=== PATIENT | male | born 1960 | race Caucasian/White ===

== ENCOUNTER 2024-12-23 08:00 | Outpatient (CLI) | payer OTHER | END 2024-12-23 12:37 | disposition home or self-care (01) | LOC: LABBT 08:00 | PROVIDERS: ATTEND Student in an Organized Health Care Education/Training Program | DX: Z01.818 Encounter for other preprocedural examination (principal); M16.12 Unilateral primary osteoarthritis, left hip | CPT/HCPCS: 71046; 93005; 93010 ==

== ENCOUNTER 2024-12-26 10:45 | Inpatient (IN) | payer OTHER ==
[2024-12-23 14:24] LABS: #Basophils 0.07 10x3/uL (0.0-0.2); #Eosinophils 0.52 10x3/uL (0.0-0.7); #Monocytes 1.07 10x3/uL (0.11-0.59); #Neutrophils 9.55 10x3/uL (1.40-6.50); %Basophils 0.5 % (0.0-1.0); %Eosinophils 3.9 % (0.0-10.0); %Lymphocytes 16.4 % (21.0-51.0); %Monocytes 7.9 % (0.0-10.0); %Neutrophils 70.8 % (42.0-75.0); Hematocrit 45.2 % (42.0-52.0); Hemoglobin 14.2 g/dL (14.0-18.0); Mean Corpuscular Hemoglobin 29.5 pg (27.0-31.0); Mean Corpuscular Volume 94.0 fL (78.0-98.0); Platelet Count 396 10x3/uL (130-400); Red Blood Cell (RBC) Count 4.81 mill/uL (4.70-6.10); White Blood Cell (WBC) Count 13.49 10x3/uL (4.8-10.8)
[2024-12-23 14:36] LABS: INR-International Normal Ratio 1.1; Prothrombin Time 14.0 sec (12.0-14.7)
[2024-12-23 14:55] LABS: ALT (SGPT) 30 U/L (Less than 45); AST (SGOT) 27 U/L (11-34); Albumin 3.7 g/dL (3.1-4.5); Alkaline Phosphatase 69 U/L (40-110); Anion Gap 13 mmol/L (10-20); BUN (Urea Nitrogen) 31 mg/dL (8.4-25.7); Bilirubin, Total 0.5 mg/dL (0.3-1.2); Calc. Creatinine Clearance 0 mL/min (70-130); Calcium 9.6 mg/dL (7.8-10.44); Carbon Dioxide 26 mmol/L (23-31); Chloride 105 mmol/L (98-107); Globulin 4.0 g/dL (2.4-3.5); Glucose 94 mg/dL (80-115); Potassium 4.4 mmol/L (3.5-5.1); Sodium 140 mmol/L (136-145)
[2024-12-26] MEDS ORDERED: Acetaminophen 500 MG TAB ONE (11:29)
[2024-12-26] MEDS ORDERED: Tranexamic Acid 1,000 MG/10 ML VIAL ONE ×2 (11:30→17:29)
[2024-12-26] MEDS ORDERED: VANCOMYCIN 2 GRAM/400 ML BAG ONE (11:44)
[2024-12-26] MEDS ORDERED: Ketamine In 0.9 % NaCl 50 MG/5 ML SYRINGE ONE (13:32)
[2024-12-26] MEDS ORDERED: PROPOFOL 20 ML ONE (13:35)
[2024-12-26] MEDS ORDERED: CEFAZOLIN 2 GM VIAL ONE (13:35)
[2024-12-26] MEDS ORDERED: Rocuronium Bromide 10 MG/ML (10ML VIAL) ONE (13:35)
[2024-12-26] MEDS ORDERED: fentaNYL PF 100 MCG/2 ML SYRINGE ONE (13:35)
[2024-12-26] MEDS ORDERED: Lidocaine 1% PF 5 ML VIAL ONE (13:35)
[2024-12-26] MEDS ORDERED: Ondansetron PF 4 MG/2 ML Vial ONE (13:41)
[2024-12-26] MEDS ORDERED: PHENYLEPHRINE-NS 100 MCG/ML 10 ML SYRINGE ONE (14:08)
[2024-12-26] MEDS ORDERED: HYDROmorphone 2 MG/ML VIAL ONE (14:30)
[2024-12-26] MEDS ORDERED: NEOSTIGMINE 3 MG/3 ML SYRINGE ONE (16:31)
[2024-12-26] MEDS ORDERED: Glycopyrrolate 0.2 MG/ML 5 ML SYRINGE ONE (16:31)
[2024-12-26] MEDS ORDERED: Ondansetron PF 4 MG/2 ML Vial IVP PRN (18:47)
[2024-12-26] MEDS ORDERED: oxyCODONE 5 MG TAB PO PRN (18:47)
[2024-12-26] MEDS ORDERED: diphenhydrAMINE 25 MG CAP PO PRN (18:47)
[2024-12-26 19:17] VITALS: BMI 34.7
[2024-12-26] MEDS: Acetaminophen 500 MG TAB PO SCH (20:16)
[2024-12-26] MEDS: Gabapentin 300 MG CAP PO SCH (20:17)
[2024-12-26] MEDS: Ferrous Gluconate 324 MG TAB PO SCH (20:17)
[2024-12-26] MEDS: oxyCODONE 5 MG TAB PO PRN (20:18)
[2024-12-26] MEDS: Senokot S 8.6-50 MG TAB PO SCH (20:18)
[2024-12-27] MEDS: FLU (Fluarix Triv) 25-26 (6MOS UP)/PF 45 MCG/0.5 ML Syringe IM ONE (02:11)
[2024-12-27 05:49] LABS: Hematocrit 40.4 % (42.0-52.0); Hemoglobin 13.1 g/dL (14.0-18.0); Mean Corpuscular Hemoglobin 30.3 pg (27.0-31.0); Mean Corpuscular Volume 93.3 fL (78.0-98.0); Platelet Count 289 10x3/uL (130-400); Red Blood Cell (RBC) Count 4.33 mill/uL (4.70-6.10); White Blood Cell (WBC) Count 16.49 10x3/uL (4.8-10.8)
[2024-12-27 06:15] LABS: Anion Gap 13 mmol/L (10-20); BUN (Urea Nitrogen) 28 mg/dL (8.4-25.7); Calc. Creatinine Clearance 111 mL/min (70-130); Calcium 8.7 mg/dL (7.8-10.44); Carbon Dioxide 21 mmol/L (23-31); Chloride 106 mmol/L (98-107); Glucose 166 mg/dL (80-115); Potassium 4.9 mmol/L (3.5-5.1); Sodium 135 mmol/L (136-145)
[2024-12-27] MEDS: Multivitamin W/ Minerals 1 TAB PO SCH (09:18)
[2024-12-27] MEDS: Aspirin 81 mg Enteric Coated Tablet PO SCH (09:18)
[2024-12-27] MEDS: Carvedilol 25 MG TAB PO SCH (21:59)
[2024-12-28 06:18] LABS: Hematocrit 37.3 % (42.0-52.0); Hemoglobin 12.0 g/dL (14.0-18.0); Mean Corpuscular Hemoglobin 30.2 pg (27.0-31.0); Mean Corpuscular Volume 93.7 fL (78.0-98.0); Platelet Count 329 10x3/uL (130-400); Red Blood Cell (RBC) Count 3.98 mill/uL (4.70-6.10); White Blood Cell (WBC) Count 13.76 10x3/uL (4.8-10.8)
[2024-12-28 08:01] VITALS: BP 125/82; TEMP 97.9
[2024-12-28] MEDS ORDERED: Non-Formulary Item 1 EACH (Spironolactone [Spironolactone] 50 MG Tablet) PO SCH (09:00)
[2024-12-28] MEDS ORDERED: Non-Formulary Item 1 EACH (Lisinopril [Lisinopril] 40 MG Tablet) PO SCH (09:00)
[2024-12-28] MEDS ORDERED: NEBIVOLOL HCL 20 MG PO SCH (09:00)
[2024-12-28] MEDS: Spironolactone 25 MG TAB PO SCH (11:36)
[2024-12-28] MEDS: Lisinopril 20 MG TAB PO SCH (11:38)
[2024-12-28] MEDS: Ezetimibe 10 MG TAB PO SCH (11:38)
== END 2024-12-28 11:43 | disposition home or self-care (01) | DRG 470 ==
LOC: SDC 10:45 → SURG A 17:39 → OBSVTOIN 17:39
PROVIDERS: ADMIT Student in an Organized Health Care Education/Training Program; ATTEND Orthopaedic Surgery
PROC: 0SRB03Z Replacement of Left Hip Joint with Ceramic Synthetic Substitute, Open Approach (ICD-10-PCS; principal; 2024-12-26)
PROC: 3E0234Z Introduction of Serum, Toxoid and Vaccine into Muscle, Percutaneous Approach (ICD-10-PCS; 2024-12-26)
PROC: 3E03329 Introduction of Other Anti-infective into Peripheral Vein, Percutaneous Approach (ICD-10-PCS; 2024-12-26)
DX: M16.12 Unilateral primary osteoarthritis, left hip (principal); R33.9 Retention of urine, unspecified; Z79.82 Long term (current) use of aspirin; Z79.899 Other long term (current) drug therapy; Z23 Encounter for immunization
CPT/HCPCS: 36415; 51798; 72170; 80048; 80053; 85025; 85027; 85610; 86850; 86900; 86901; 87081; 96374; 96375; 96376; C1776; G0378; J0169; J0665; J1100; J1171; J2250; J2405; J2550; J2704; J3010; J3373; J3375; J3490; J7030